=== PATIENT | female | born 1980 | race Caucasian/White ===

== ENCOUNTER 2017-08-21 23:30 | Emergency (ER) | payer MEDICAID ==
[2017-08-22 00:07] VITALS: BP 148/74
[2017-08-22] MEDS ORDERED: Ketorolac 60 MG/2 ML SDV IM ONE (00:17)
[2017-08-22] MEDS ORDERED: Ondansetron 4 MG Tab.DIS PO ONE ×2 (00:17→00:40)
--- NOTE | 2017-08-22 00:18 | EDM.PDOC ---
ED HPI GENERAL MEDICAL PROBLEM - General Chief Complaint: Flank Pain Stated Complaint: left flank pain and left abdominal pain Time Seen by Provider: 08/22/17 00:05 Source of Information: Reports: Patient History Limitations: Reports: No Limitations - History of Present Illness INITIAL COMMENTS - FREE TEXT/NARRATIVE: 36 YO WF presents to ER with 2 day history of urinary frequency and urgency with some mild dysuria and suprapubic abdominal pain. Pt states pain has since moved to her left flank prompting ER evaluation. Pt with associated nausea without vomiting and chills without fever. Pt reports history of kidney stones in the remote past requiring lithotripsy. Onset Date: 08/20/17 Duration: Day(s): (2) Location: Reports: Abdomen, Back Quality: Reports: Ache Severity: Mild Improves with: Reports: None Worsens with: Reports: None Associated Symptoms: Reports: No Other Symptoms, Nausea/Vomiting - Related Data Allergies Allergy/AdvReac Type Severity Reaction Status Date / Time adhesive Allergy Rash Verified 08/22/17 00:31 clindamycin Allergy Itching Verified 08/22/17 00:31 codeine Allergy Itching Verified 08/22/17 00:31 levofloxacin [From Levaquin] Allergy Rash Verified 08/22/17 00:31 morphine Allergy Itching Verified 08/22/17 00:31 oxycodone [From Percocet] Allergy Itching Verified 08/22/17 00:31 sulfamethoxazole Allergy Rash Verified 08/22/17 00:33 [From Bactrim] trimethoprim [From Bactrim] Allergy Rash Verified 08/22/17 00:33 vancomycin Allergy Redness Verified 08/22/17 00:31 Home Meds: Home Meds Multivitamin [One Daily] 1 each PO DAILY 01/03/15 [History] Ibuprofen [Advil] 200 - 600 mg PO ASDIRECTED PRN 04/19/16 [History] Midodrine 7.5 mg PO TID 04/19/16 [History] SUMAtriptan Succinate [Imitrex] 100 mg PO ASDIRECTED PRN 04/19/16 [History] Ondansetron [Zofran ODT] 4 mg PO Q6H PRN 10/24/16 [History] Propranolol [Inderal LA] 80 mg PO DAILY 10/24/16 [History] Naproxen [Naprosyn] 1 tab PO BID 01/01/17 [History] Pantoprazole Sodium [Protonix] 40 mg PO DAILY 05/08/17 [History] Promethazine [Phenergan] 12.5 mg QID PRN 05/08/17 [History] Cephalexin [Keflex] 500 mg PO Q6HR #28 cap 08/22/17 [Rx] Metoprolol Tartrate 50 mg PO BID 08/22/17 [History] Ondansetron [Zofran ODT] 4 mg PO Q8H #10 tab.dis 08/22/17 [Rx] Phenazopyridine HCl [Pyridium] 200 mg PO BID PRN #6 tablet 08/22/17 [Rx] Past Medical History - Past Health History Medical/Surgical History: Denies Medical/Surgical History HEENT History: Reports: Head Cardiovascular History: Reports: Other (See Below) Other Cardiovascular History: sinus tachycardia, POTS Gastrointestinal History: Reports: GERD, Inflammatory Bowel Disease Genitourinary History: Reports: Renal Calculus Other Genitourinary History: gross hematuria [employer] History: Reports: Other OB/BYN History: ovarian cyst removed Neurological History: Reports: Migraines, Seizure, Other (See Below) Other Neuro History: History of migraines and seizures X2 in her sleep about 2 years ago. Sees neurology in [place]; unsure if they are true seizures or not. Other Endocrine/Metabolic History: borderline abn.thyroid lab Dermatologic History: Reports: Other (See Below) Other Dermatologic History: acne - Infectious Disease History Infectious Disease History: Reports: Chicken Pox, MRSA Other Infectious Disease History: Recent history of MRSA on her face. - Past Surgical History HEENT Surgical History: Reports: Adenoidectomy, Tonsillectomy Social & Family History - Family History Other Family History: mother has kidney problems Oncologic: Reports: Bladder Other Oncologic Family History: grandma - Tobacco Use Smoking Status *Q: Current Every Day Smoker Years of Tobacco use: 20 Packs/Tins Daily: 0.2 - Caffeine Use Caffeine Use: Reports: Coffee, Soda - Alcohol Use Days Per Week of Alcohol Use: 0 - Recreational Drug Use Recreational Drug Use: No ED ROS GENERAL - Review of Systems Review Of Systems: See Below Constitutional: Reports: Chills HEENT: Reports: No Symptoms Respiratory: Reports: No Symptoms Cardiovascular: Reports: No Symptoms Endocrine: Reports: No Symptoms GI/Abdominal: Reports: Nausea : Reports: Dysuria, Flank Pain (left), Frequency, Urgency Musculoskeletal: Reports: No Symptoms Skin: Reports: No Symptoms Neurological: Reports: No Symptoms Psychiatric: Reports: No Symptoms Hematologic/Lymphatic: Reports: No Symptoms Immunologic: Reports: No Symptoms ED EXAM, RENAL/ - Physical Exam Exam: See Below Exam Limited By: No Limitations General Appearance: Alert, WD/WN, No Apparent Distress Neck: Normal Inspection, Supple, Non-Tender, Full Range of Motion Respiratory/Chest: No Respiratory Distress, Lungs Clear, Normal Breath Sounds, No Accessory Muscle Use, Chest Non-Tender Cardiovascular: Normal Peripheral Pulses, Regular Rate, Rhythm, No Edema, No Gallop, No JVD, No Murmur, No Rub GI/Abdominal: Normal Bowel Sounds, Soft, Non-Tender, No Organomegaly, No Distention, No Abnormal Bruit, No Mass Back Exam: Full Range of Motion, CVA Tenderness (L) Extremities: Normal Inspection, Normal Range of Motion, Non-Tender, Normal Capillary Refill, No Pedal Edema Neurological: Alert, Oriented, CN II-XII Intact, Normal Cognition, Normal Gait, Normal Reflexes, No Motor/Sensory Deficits Psychiatric: Normal Affect, Normal Mood Skin Exam: Warm, Dry, Intact, Normal Color, No Rash Lymphatic: No Adenopathy Course - Vital Signs Last Recorded V/S: Last Vital Signs Temp 36.4 C 08/21/17 23:45 Pulse 99 08/21/17 23:45 Resp 18 08/21/17 23:45 BP 148/74 H 08/21/17 23:45 Pulse Ox 99 08/21/17 23:45 - Orders/Labs/Meds Labs: Laboratory Tests 08/21/17 08/21/17 Range/Units 23:58 23:58 Specimen Type Urinvoid Urine Color Yellow (YELLOW) Urine Appearance Clear (CLEAR) Urine pH 6.0 (5.0-9.0) Ur Specific [place] 1.020 (1.005-1.030) Urine Protein Negative (NEGATIVE) mg/dL Urine Glucose (UA) Negative (NEGATIVE) mg/dL Urine Ketones Negative (NEGATIVE) mg/dL Urine Occult Blood Negative (NEGATIVE) Urine Nitrite Negative (NEGATIVE) Urine Bilirubin Negative (NEGATIVE) Urine Urobilinogen 0.2 (0.2-1.0) E.U./dL Ur Leukocyte Esterase Negative (NEGATIVE) Urine RBC Not seen /HPF Urine WBC 0-5 /HPF Ur Epithelial Cells Occasional /LPF Urine Bacteria Few (NONE TO FEW) /HPF Urine HCG, Qual Negative (NEGATIVE) Meds: Medications Discontinued Medications Generic Name Dose Route Start Last Admin Trade Name Freq PRN Reason Stop Dose Admin Ketorolac Tromethamine 60 mg 08/22/17 00:17 08/22/17 00:24 Toradol IM 08/22/17 00:18 60 mg ONETIME ONE Administration Ondansetron HCl 4 mg 08/22/17 00:17 08/22/17 00:29 Zofran Odt PO 08/22/17 00:18 4 mg ONETIME ONE Administration Departure - Departure Time of Disposition: 00:38 Disposition: Home, Self-Care 01 Condition: Good Clinical Impression: UTI, Urinary tract infectious disease - Discharge Information Prescriptions: Cephalexin [Keflex] 500 mg PO Q6HR #28 cap Ondansetron [Zofran ODT] 4 mg PO Q8H #10 tab.dis Phenazopyridine HCl [Pyridium] 200 mg PO BID PRN #6 tablet PRN Reason: Pain Instructions: Urinary Tract Infection, Adult Referrals: PCP,Unknown [Primary Care Provider] - Zain Kessler MD [Physician] - Forms: ED Department Discharge - Assessment/Plan Assessment:: 1. Urinary tract infection Plan: 1. keflex 500mg PO Q6 x 10 days 2. zofran 4mg PO Q8 PRN nausea 3. pyridium 200mg PO BID x 3 days 4. follow up in clinic for recheck 5. return to ER for worsening symptoms
[2017-08-22] MEDS ORDERED: Cephalexin 250 MG Cap PO ONE (00:40)
[2017-08-22] MEDS ORDERED: Phenazopyridine 100 MG Tab PO PRN (00:40)
== END 2017-08-22 00:55 | disposition home or self-care (01) ==
LOC: KA.ED 23:30
DX: N39.0 Urinary tract infection, site not specified (principal); F17.210 Nicotine dependence, cigarettes, uncomplicated; Z88.1 Allergy status to other antibiotic agents; Z88.5 Allergy status to narcotic agent; Z88.2 Allergy status to sulfonamides; Z79.899 Other long term (current) drug therapy
CPT/HCPCS: 81001; 81025; 87086; 96372; 99283; A9270; J1885